=== PATIENT | female | born 1950 | race Hispanic/Latino ===

== ENCOUNTER 2018-01-05 10:51 | Outpatient (CLI) | payer BC ==
--- NOTE | 2018-01-05 14:34 | Mammography Report ---
BONE DEXA:01/05/18 10:51:00 CLINICAL: Postmenopausal. COMPARISON: 09/01/15, 04/27/11 and 01/26/09 TECHNIQUE: Two site bone DEXA performed on an Hologic scanner. FINDINGS: The average BMD of the lumbar spine L1-L4 is 0.871g/cm squared with a T-score of -1.6 and a Z-score of +0.3. This compares to 0.860g/cm squared on the last exam and represents a -1.3% and at% change from the previous study and a -3.6% change from baseline. Severe levoscoliosis and moderate endplate sclerosis at L2-3, L3-4 and L4-5. The average BMD of the left hip is 0.623g/cm squared with a T-score of -2.6 and a Z-score of -1.3. This compares to 0.673g/cm squared on the last exam and represents a -7.5% change from the previous study and a -11.2% change from baseline. The left femoral neck BMD is 0.490g/cm squared with a T score of -3.2 and Z score of -1.6. IMPRESSION: 1. WHO classification: Osteopenia with increased fracture risk based on spine measurements. A modest decline in spine BMD compared to previous exams. 2. WHO classification: Osteoporosis with high fracture risk based on left femoral neck measurements. A significant decline in left hip BMD compared to previous exams. RECOMMENDATION: Clinical correlation and routine screening. DEFINITIONS: BMD = Bone Mineral Density T-score = BMD related to mean peak bone mass of young adult (mean expressed in Standard Deviation) Z-score = Age matched BMD expressed in SD World Health Organization (WHO) Diagnostic Criteria Normal T-score > -1 SD Osteopenia T-score between -1 and -2.4 SD Osteoporosis T-score -2.5 SD or below NOTE: BMD is not the only risk factor for fracture; also consider factors such as the patient's age, risk of falling, previous osteoporotic fracture, family history of osteoporotic fractures, current smoker, and low body weight. Z-scores are not calculated if >80 years of age.
== END 2018-01-05 10:52 | disposition home or self-care (01) ==
LOC: SPVWC 10:51
PROVIDERS: ATTEND Family Medicine
DX: M81.0 Age-related osteoporosis without current pathological fracture (principal); F17.210 Nicotine dependence, cigarettes, uncomplicated
CPT/HCPCS: 77080